=== PATIENT | male | born 1975 | race Caucasian/White ===

== ENCOUNTER 2023-03-06 08:39 | Outpatient (CLI) | payer OTHER ==
--- NOTE | 2023-03-06 09:53 | Sleep Patient Instructions ---
Sleep Center Visit Summary - Patient Visit Information Reason for Visit: Initial consult for PAP therapy - Patient Instructions Additional Instructions: You will continue with CPAP therapy with pressure changed to 4-16 cmH2O. Please let us know if the pressure change is uncomfortable for further adjustment. A supply prescription will be updated with your DME. Please follow up with the sleep care office in 1 to 2 months. - Clinic Information Contact: [facility] [address] [place] [id number] [email or web address] T: [phone]
--- NOTE | 2023-03-06 10:00 | SLEEP CARE CONSULTATION ---
Information from patient questionnaire entered by Kerry Angel. I have reviewed and concur with the information entered by Kerry Angel. This document represents the service I personally performed and the decisions made by me, Edna Campbell ARNP. History of Present Illness Service Date and Time: 03/06/2023 0839 Reason for Visit: New patient, Previously diagnosed sleep apnea, sleep apnea on CPAP therapy Chief Complaint: reports: Other (CPAP CALIBRATION) Date of Onset: 6YRS Usual bedtime: 10PM Time it takes to fall asleep: 20MIN Snores at night: Yes Observed to quit breathing while asleep: Yes Sleeps alone due to snoring: Yes Number of times waking at night: 3-4 Reasons for waking at night: reports: Snoring, Bathroom, Other (NOISE). denies: Choking, Gasping for air Recalls having dreams: Yes Usually gets out of bed at: 6AM Feels refreshed in the morning: No Morning headache: No Sleepy or fatigued during the day: Yes Ever fallen asleep while driving: Yes Takes day naps: No Dreams during day naps: No Prior sleep studies: Yes Year and Where: 2021 [facility], [place], [place] Additional HPI information: DEEDEE JOHNSON JR was previsously diagnosed to have mild, AHI 9.9, obstructive sleep apnea-hypopnea syndrome as seen in sleep study dated 04/24/[address] [facility] in [place], [place] and comes in today for CPAP therapy. - Parasomnia Symptoms Ever been unable to move upon waking from sleep: No Walks in sleep: No Talks in sleep: No Ever acted out dreams in sleep: No Ever felt weak in the knees when startled or emotional: No Bothered by creepy, crawly, restless sensations in legs: Yes Problems with memory or concentration: No CPAP Compliance Data - Data Reviewed with Patient Average duration of nightly device use: 5.6 hours Compliance rate %: 0 (0/0 use days) Current pressure setting (cmH2O): 6-16 (avg 8) Average residual AHI: 9.4 Average large leak: 34.2 l/min Compliance data discussion: He has a [employer] Resplus C-20A CPAP. He is getting supplies from [employer] in [place]. He is using a [employer] nasal cushion. He states he has been having issues with pressure and not using the mask every night. Ramp starting pressure is at 4 cmH2O. Subjective Patient concerns: reports: other (difficult to exhale against pressure; pressure will stop short when inhaling, feels short of air). denies: aerophagia, mask discomfort, air blowing in eyes, mask leak noise, condensation in mask/hose, nasal congestion, dry mouth, nose, throat, epistaxis Current pressure setting perceived as: too high On therapy, patient: denies: drowsiness while driving Initial [place] Sleepiness Scale score: 10 (03/05/23) Past Medical History Past Medical History: reports: Other (Sleep Apnea; low blood pressure) Social History The patient's occupation is a AM. Patient is and lives in [place]. Have you smoked in the past 12 months: No Alcohol use: Yes Alcohol amount and frequency: 1-2 DRINKS 3-4 TIMES A MONTH Caffeine use: Yes Caffeine amount and frequency: 1 DRINK 1-2 TIMES A WEEK Family History Family history of sleep disordered breathing: Yes Family Hx Sleep Apnea: Father: Snoring Allergies and Home Medications Known drug allergies: No Drug allergies reviewed: Yes Home medication list reviewed: Yes (no daily medications) Review of Systems Cardiovascular: reports: other (HYPOTENSION ) Gastrointestinal: denies: heartburn Neurological: denies: headaches Psychiatric: denies: anxiety, depression Ear/Nose/Throat: reports: tonsillectomy, wisdom teeth removed Musculoskeletal: reports: neck pain Physical Exam Vital signs obtained and entered by: Edna Calvo NP Blood Pressure: 107/64 Cuff size: wrist (right) Heart Rate: 65 O2 Saturation: 99 Height: 6 ft Weight: 168 lb 9.6 oz Body Mass Index: 22.8 BMI Classification: Normal Impression and Plan 1. Obstructive Sleep Apnea-Hypopnea Syndrome, mild, with poor treatment compliance and poor apnea control. Patient is having difficulty being able to breathe against the pressure and I will also seem to shut off before he can get a full breath in when inhaling. I am not familiar with the Beyond CPAP, to know if this is common for this machine. Patient feels like the pressure is too high and I will adjust his pressure to 4-16 cmH2O until he is more comfortable using the machine at a lower starting pressure. We will update his supply prescription with his DME in [place]. We will explore the option of changing his CPAP if needed, if this machine is not working properly. I will have him follow-up in 1 to 2 months to see how he is doing and recheck compliance. Patient's apnea severity and rationale for treatment to reduce apnea, improve sleep quality and reduce cardiovascular and cerebrovascular events was reviewed. * Change auto CPAP pressure to 4-16 cmH2O * Notify me if snoring with mask or feeling that the pressure is too much or too little * Call this office if any problems using CPAP * Return for follow up in 1-2 months, or sooner if concerns arise Visit Type: In Office Time Spent with Patient (minutes): 38 Provider Statement: I spent 100% of the Face to Face Visit with the patient with greater than 50% spent counseling the patient and coordination of care.
[2023-03-06 10:01] VITALS: BP 107/64
== END 2023-03-06 08:40 | disposition home or self-care (01) ==
LOC: SC 08:39
PROVIDERS: ATTEND Nurse Practitioner Family
DX: G47.33 Obstructive sleep apnea (adult) (pediatric) (principal)
CPT/HCPCS: 99203; 99212

== ENCOUNTER 2023-04-17 16:22 | Outpatient (CLI) | payer OTHER ==
--- NOTE | 2023-04-17 17:10 | SLEEP CARE CONSULTATION ---
Information from patient questionnaire entered by Kerry Angel. I have reviewed and concur with the information entered by Kerry Angel. This document represents the service I personally performed and the decisions made by me, Edna Campbell ARNP. History of Present Illness Service Date and Time: 04/17/20231621 Previous diagnosis: Mild, Obstructive Sleep Apnea-Hypopnea Syndrome AHI: 9.9 (04/2022) Reason for follow up: other (6 WEEK F/U SD CARD NEEDED) Equipment type: CPAP (Byond Resplus, s/u 2021) Equipment obtained from: Other ([employer] in [place]; getting supplies) Mask style: Nasal Backup mask available: Yes (old mask) Last cushion change: 1 month Prior sleep studies: Yes Year and Where: 2021 [facility] additional information: DEEDEE JOHNSON JR was diagnosed to have mild, AHI 9.9, obstructive sleep apnea- hypopnea syndrome and returned today for CPAP therapy six week follow-up. Sleep Study - Results Prior sleep studies: Yes Year and Where: 2021 [place], [place] CPAP Compliance Data - Data Reviewed with Patient Average duration of nightly device use: 4 hours Current pressure setting (cmH2O): 4-16 Humidity settin Average residual AHI: 1.6 (in last 90 days) Average large leak: 26.1 L/min Compliance data discussion: Patient states he uses his machine at least 6 nights a week which would be about 80% compliance with his device but we have no data to corroborate. Subjective Missed days of use due to: reports: other (taking a break from machine) Patient concerns: reports: dry mouth, nose, throat. denies: aerophagia, mask discomfort, air blowing in eyes, mask leak noise, condensation in mask/hose, nasal congestion, epistaxis Observed to snore while using device: No Current pressure setting perceived as: comfortable (too high on the exhale) On therapy, patient: reports: other (not noticing much difference in his sleep). denies: drowsiness while driving Initial [place] Sleepiness Scale score: 10 (03/05/23) Current [place] Sleepiness Scale score: 14 Allergies and Home Medications Known drug allergies: No Drug allergies reviewed: Yes Home medication list reviewed: Yes (no changes) Review of Systems Review of systems same as previous: Yes (no changes) Physical Exam Vital signs obtained and entered by: Edna Calvo NP Blood Pressure: 101/65 Cuff size: wrist (right) Heart Rate: 61 O2 Saturation: 99 Height: 6 ft Weight: 168 lb 9.6 oz Body Mass Index: 22.8 BMI Classification: Normal Impression and Plan 1. Obstructive Sleep Apnea-Hypopnea Syndrome, mild, with unknown treatment compliance and good apnea control. On CPAP therapy, the patient has better sleep quality and is more rested overall. We were unable to get full data from patient's Byond device. He is still experiencing resistance with exhaling when using the device. He has been able to increase his use since we changed the pressure setting to 4-16 cmH2O, according to the patient. Unfortunately, we are unable to see how much he is using it with the data we can obtain from the machine. We will reach out again to his [employer] company to see if we can get this data from them. I am not sure what pressures he is actually using because that information is not available. He is still experiencing a strong resistance sensation when breathing with the machine on exhalation. I do not know if his machine is working properly or may be defective. I would like to get him in for a titration study to get a better idea of his optimal pressures and try to determine efficacy of his device. I will order the titration study and follow- up with him after the study. He voiced understanding. Patient's apnea severity and rationale for treatment to reduce apnea, improve sleep quality and reduce cardiovascular and cerebrovascular events was reviewed. * Continue auto CPAP pressure at 4-16 cmH2O * Titration study * Notify me if snoring with mask or feeling that the pressure is too much or too little * Call this office if any problems using CPAP * Return for follow up in after titration study, or sooner if concerns arise Counseling Topics: Spare mask Visit Type: In Office Time Spent with Patient (minutes): 29 Provider Statement: I spent 100% of the Face to Face Visit with the patient with greater than 50% spent counseling the patient and coordination of care.
[2023-04-17 17:16] VITALS: BP 101/65; O2SAT 99
== END 2023-04-17 16:23 | disposition home or self-care (01) ==
LOC: SC 16:22
PROVIDERS: ATTEND Nurse Practitioner Family
DX: G47.33 Obstructive sleep apnea (adult) (pediatric) (principal)
CPT/HCPCS: 99212; 99213

== ENCOUNTER 2023-09-29 07:15 | Outpatient (CLI) | payer OTHER ==
--- NOTE | 2023-10-01 11:19 | MRI Report ---
PROCEDURE: Knee LT WO INDICATIONS: L KNEE PAIN TECHNIQUE: Noncontrast sagittal PD fast spin echo and T2 fast spin echo with fat saturation, sagittal 3-D spoile d GE with fat saturation; coronal T1 spin echo and PD fast spin echo with fat saturation, and axial P D fast spin echo with fat saturation through the knee. COMPARISON: None. FINDINGS: Image quality: Excellent. Anterior cruciate ligament: Intact. Posterior cruciate ligament: Intact. Medial collateral ligament: Intact. Lateral collateral ligament: Intact. Medial meniscus: There is shallow radial tearing at the posterior horn of the medial meniscus with a small centrally displaced meniscal flap at the adjacent posterior root attachment as well as a horiz ontal oblique tear at the meniscal body extending to the inner third of the femoral articular surface . Mild adjacent osseous edema is likely reactive or secondary to overlying cartilage loss. Lateral meniscus: Questionable nondisplaced horizontal oblique tear at the posterior horn of the lat eral meniscus extending to the inner third of the tibial articular surface. Medial and lateral tendons: The semimembranosus tendon insertions appear intact. Visualized portion s of the pes anserinus tendons appear normal. The popliteus tendon appears intact. Iliotibial band appears normal. Anterior structures: The patellar tendon and the distal quadriceps tendon appear intact. No patellar subluxation. No femoral trochlear dysplasia or ventral trochlear prominence. No edema in the infra patellar fat pad. Bones: No acute trabecular bone injury or fracture. Medial femorotibial cartilage: High-grade cartilage loss is seen in the central weightbearing portio n of the medial tibial plateau with subchondral edema. There is moderate partial-thickness cartilage loss throughout the remainder of the weightbearing portion of the medial femorotibial compartment. Lateral femorotibial cartilage: No focal cartilage defect. Patellofemoral cartilage: Deep cartilage fissuring is seen at the lateral patellar facet. Soft tissues: There is a medium-sized joint effusion. There is a moderate medial popliteal cyst. Th e musculature surrounding the knee is normal in bulk. IMPRESSION: 1.Complex tearing of the medial meniscus with a shallow radial component at the posterior horn, a sma ll centrally displaced flap component at the posterior root attachment, and a horizontal oblique comp onent meniscal body extending to the inner third of the femoral articular surface. 2.Questionable subtle horizontal oblique tear at the posterior horn of the lateral meniscus extending to the inner third of the tibial articular surface. 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 Cartila ge fissuring is seen in the patellofemoral compartment. 4.No acute trabecular bone injury. Cruciate and collateral ligaments are intact. 5.Moderate joint effusion. Moderate medial popliteal cyst. Reviewed by: Robin Goddard MD on 10/01/2023 11:18 AM PST Approved by: Robin Goddard MD on 10/01/2023 11:18 AM PST Station ID: [id number]
== END 2023-09-29 07:16 | disposition home or self-care (01) ==
LOC: DI 07:15
PROVIDERS: ATTEND Nurse Practitioner Family
DX: S83.232A Complex tear of medial meniscus, current injury, left knee, initial encounter (principal); M94.262 Chondromalacia, left knee; M25.462 Effusion, left knee; M71.22 Synovial cyst of popliteal space [Baker], left knee